=== PATIENT | female | born 1975 | race Caucasian/White ===

== ENCOUNTER → 2016-12-17 | Outpatient (CLI) | payer MEDICARE ==
[~2016-12-17] MED LIST: ACETAMINOPHEN PO; ALBUTEROL17 GM INH; ALLERGY RELIEF10 M1 PO; AMBIEN PO; AMBIEN10 MG PO; AMOXICILLIN PO; ARTHROTEC 751 TAB.EC PO; AUGMENTIN PO; AUGMENTIN875 M1 PO; AZITHROMYCIN250 MG PO; BACTRIM DS TABL1 TA1 DOB; BACTRIM DS TABL1 TA1 PO; BENADRYL PO; BENADRYL25 M1 PO; BENTYL20 M1 PO; BENZONATATE PO; CARAFATE1 G PO; CETIRIZINE HCL10 MG PO; CLARITIN10 M2 PO; CLARITIN10 MG PO; CLEOCIN PO; CLOMID50 MG PO; CYMBALTA PO; DICLOFENAC PO; DIFLUCAN PO; DOC-Q-LACE100 MG; DOXEPIN HCL50 MG PO; ERYTHROMYCIN B500 MG PO; FAMOTIDINE PO; FIORICET 50-301 EACH PO; FIORICET1 TAB; FISH OIL 1,0001 CA2 PO; FLEXERIL PO; FLEXERIL10 M1 PO; FLEXERIL10 MG PO; FLONASE16 GM; FOLIC ACID800 MCG PO; HYDROCHLOROTH12.5 MG PO; HYDROCHLOROTHIA25 MG PO; HYDROCODONE-APA1 T33 PO; HYDROXYZINE HCL25 M1 PO; IBUPROFEN800 MG PO; KEFLEX500 M1 PO; KETOPROFEN PO; KLONOPIN; KLONOPIN1 MG PO; LIPITOR PO; LOMOTIL TABLET1 TAB PO; LOMOTIL WHITE2.5 M1 PO; MAGIC MOUTHWASH PO; MEDROL DOSEPAK4 MG DOB; MEDROL PO; METFORMIN PO; METHOCARBAMOL500 MG PO; NABUMETONE PO; NABUMETONE500 MG PO; NAPROSYN500 MG PO; NAPROXEN PO; NAPROXEN SODIU550 MG PO; NEXIUM PO; NORCO1 TAB 10/3 PO; OXYCONTIN PO; PANTOPRAZOLE SO40 MG PO; PAXIL PO; PAXIL30 MG PO; PERCOCET5/325; PHENERGAN DM PO; PHENERGAN PR; PHENERGAN25 M1 PO; PRAVACHOL PO; PREDNISONE PO; PREDNISONE10 MG/DOSE PO; PRILOSEC PO; PRILOSEC20 M1 PO; PROVERA10 MG PO; ROBAXIN PO; ROBAXIN500 MG PO; ROBITUSSIN COU118 M7 PO; SKELAXIN PO; SUDOGEST30 M1 PO; TOPAMAX50 MG PO; TOPIRAMATE50 MG PO; TYLENOL #3; TYLENOL #3 PO; TYLENOL500 MG PO; ULTRACET TABLE1 EACH PO; VIBRAMYCIN100 M1 PO; VICODIN 5/500 T1 TAB PO; VICODIN PO; VISTARIL50 MG PO; VOLTAREN50 MG PO; VOLTAREN75 MG PO; YASMIN 28 TABLE1 TAB PO; ZANTAC150 MG PO; ZITHROMAX PO; ZITHROMAX1 G/PKT PO; ZITHROMAX500 MG PO; ZOCOR PO; ZOFRAN PO; ZOFRAN8 MG; ZOLOFT PO; ZOLPIDEM TARTRAT5 M1 PO; ZYRTEC10 M2 PO
--- NOTE | ~2016-12-17 | US6 ---
[facility] A Service of [facility] & [facility] RADIOLOGY TEXT RESULTS PATIENT: JONY FLEMING LOCATION: [facility] : 77 UNIT #: [id number] AGE: [address]: Reuben Zepeda MD SEX: F ORDER DR: [id number] [facility] [address] [place], [place] [address] [id number] O MR#: [id number] Acc #: [id number] NAME: JONY FLEMING : 1975 SEX: F STUDY DATE/TIME: 12/17/2016 9:24 UNIT: [facility] ROOM: STUDY DESCRIPTION: US Abdominal Limited Attending Physician: Reuben Zepeda M.D. Referring Physician: Reuben Zepeda M.D. Ordering Physician: Reuben Zepeda M.D. Primary Care Physician: Joel Scanlon M.D. MEDICAL IMAGING REPORT This report is preliminary unless electronic signature is present EXAM Abdominal ultrasound limited 12/17/2016. HISTORY Abdominal pain right upper quadrant pain, nausea 3 months, pain worse last week. Gallbladder removed. FINDINGS Real-time ultrasonography of the right upper quadrant performed. Lynch-scale color Doppler, Doppler pulse-wave interrogation utilized. Visualized portions of pancreas unremarkable. Some portions of pancreatic tail obscured by bowel gas artifact. The liver shows diffusely increased parenchymal echogenicity, suggesting diffuse fatty infiltration. Liver is upper limits of normal in size, measuring about 16.9 cm in craniocaudal extent. No suspicious focal parenchymal abnormality is seen. The gallbladder is absent. There is no intra or extrahepatic biliary ductal dilatation. The common bile duct measures approximately 4 mm in diameter. The right kidney measures 10.93 cm in greatest length. No hydronephrosis or nephrolithiasis. No cystic or solid mass lesion and no perinephric fluid collection. The portal vein is patent with normal direction of flow. IMPRESSION 1. Diffuse fatty infiltration of the liver. This appears to have developed in the interval from a comparison study dated May 2013. No focal hepatic parenchymal abnormalities seen. 2. Status post cholecystectomy. No biliary ductal dilatation. 3. Right kidney normal. 4. Visualized pancreas unremarkable, but portions of pancreatic tail are obscured by bowel gas artifact. If it would assist in management, pancreas could be further evaluated with CT. 5. No abnormal fluid collections. [facility] A Service of [facility] & [facility] RADIOLOGY TEXT RESULTS PATIENT: JONY FLEMING LOCATION: [facility] : 77 UNIT #: [id number] AGE: [address]: Reuben Zepeda MD SEX: F ORDER DR: Dictated by... Pk Quevedo M.D. THIS IS AN ELECTRONICALLY VERIFIED REPORT Pk Quevedo M.D. at 12/17/2016 6:44 PM DARSHAN/desire TD: 12/17/2016 16:03 JOB #: [id number] MEDICAL IMAGING REPORT Page 1 of 1 COPY
== END | disposition home or self-care (01) ==
LOC: CGUS 08:59
DX: R10.13 Epigastric pain (principal); K59.1 Functional diarrhea; R13.10 Dysphagia, unspecified; R11.0 Nausea; K58.9 Irritable bowel syndrome, unspecified; R94.5 Abnormal results of liver function studies; K76.0 Fatty (change of) liver, not elsewhere classified; Z90.49 Acquired absence of other specified parts of digestive tract
CPT/HCPCS: 76705